=== PATIENT | female | born 1985 | race African-American/Black ===

== ENCOUNTER 2016-05-09 11:22 | Emergency (ER) | payer MEDICAID ==
[~2016-05-09] VITALS: Ht 165.1 cm; Wt 149.5 kg
[2016-05-09 11:51] VITALS: BP 116/68
== END 2016-05-09 14:06 | disposition home or self-care (01) ==
LOC: ER 12:55
DX: S16.1XXA Strain of muscle, fascia and tendon at neck level, initial encounter (principal); F17.200 Nicotine dependence, unspecified, uncomplicated; F12.10 Cannabis abuse, uncomplicated; Y93.89 Activity, other specified; Y99.9 Unspecified external cause status; Y92.89 Other specified places as the place of occurrence of the external cause
CPT/HCPCS: 99283